=== PATIENT | male | born 2000 | race Caucasian/White ===

== ENCOUNTER 2021-06-07 11:09 | Day surgery (SDC) | payer OTHER ==
[~2021-06-07] VITALS: Ht 180.3 cm; Wt 80.9 kg
[~2021-06-07 11:09] MED LIST: MIRA3350 PO; NS 1,000 ML IV ONE; magnesium citrate PO
[2021-06-07] MEDS ORDERED: propofoL 200 MG/20 ML VIAL As Ordered ONE (12:54)
[2021-06-07] MEDS ORDERED: propofoL 500 MG/50 ML VIAL As Ordered ONE (13:42)
--- NOTE | 2021-06-07 14:17 | ROOR ---
Patient Name: Richard Grover Procedure Date: 06/07/2021 1:34 PM Date of : 2000 Age: 20 Room: [facility] Gender: Male Note Status: Finalized Procedure: Colonoscopy Indications: Hematochezia, Constipation Providers: Abiodun Cisneros MD Referring MD: TWIN MURCIA MD Requesting Provider: Medicines: Monitored Anesthesia Care Complications: No immediate complications. Procedure: Pre-Anesthesia Assessment: - The heart rate, respiratory rate, oxygen saturations, blood pressure, adequacy of pulmonary ventilation, and response to care were monitored throughout the procedure. The Colonoscope was introduced through the anus and advanced to 10 cm into the ileum. The colonoscopy was performed without difficulty. The patient tolerated the procedure well. The quality of the bowel preparation was good. Findings: The perianal and digital rectal examinations were normal. Two semi-pedunculated polyps were found in the sigmoid colon and hepatic flexure. The polyps were 7 mm in size. These polyps were removed with a cold snare. Resection and retrieval were complete. To prevent bleeding after the polypectomy, three hemostatic clips were successfully placed. There was no bleeding at the end of the procedure. Small Internal Hemorrhoids. The exam was otherwise normal throughout the examined colon. The terminal ileum appeared normal. Impression: - Two 7 mm polyps in the sigmoid colon and at the hepatic flexure, removed with a cold snare. Resected and retrieved. Clips were placed. - Small Internal Hemorrhoids. - The colon and examined portion of the ileum was otherwise normal. Recommendation: - Telephone endoscopist for pathology results in 2 weeks. - Use fiber, for example Citrucel, Fibercon, Konsyl or Metamucil. - Miralax 1 capful (17 grams) in 8 ounces of water PO BID. Procedure Code(s): --- Professional --- 14890, Colonoscopy, flexible; with removal of tumor(s), polyp(s), or other lesion(s) by snare technique Diagnosis Code(s): --- Professional --- K59.00, Constipation, unspecified K92.1, Melena (includes Hematochezia) K63.5, Polyp of colon CPT copyright 2019 [employer]. All rights reserved. The codes documented in this report are preliminary and upon hvac service tech review may be revised to meet current compliance requirements. Abiodun Cisneros MD Abiodun Cisneros MD 06/07/2021 2:16:53 PM Electronically signed by Abiodun Cisneros MD Number of Addenda: 0 Note Initiated On: 06/07/2021 1:34 PM Estimated Blood Loss: Estimated blood loss: none.
[2021-06-07 14:40] VITALS: BP 120/70
== END 2021-06-07 14:51 | disposition home or self-care (01) ==
LOC: M OPP 11:09
PROVIDERS: ATTEND Internal Medicine Gastroenterology
DX: K63.5 Polyp of colon (principal); K92.1 Melena; K59.00 Constipation, unspecified; F17.210 Nicotine dependence, cigarettes, uncomplicated

== ENCOUNTER 2023-03-05 11:17 | Day surgery (SDC) | payer OTHER ==
[~2023-03-05] VITALS: Ht 180.3 cm; Wt 86.4 kg
[~2023-03-05 11:17] MED LIST changes: +FLUT50SP17; +MELA5TAB20 PO; -NS 1,000 ML IV ONE
[2023-03-05] MEDS ORDERED: SUGAMMADEX SODIUM 500 MG/5 ML VIAL (BRIDION) As Ordered ONE (13:22)
[2023-03-05] MEDS ORDERED: propofoL 200 MG/20 ML VIAL As Ordered ONE (13:22)
[2023-03-05] MEDS ORDERED: LIDOCAINE 2% 100MG/5ML SDV (FOR ANES.) As Ordered ONE (13:22)
[2023-03-05] MEDS ORDERED: ONDANSETRON 4MG 2ML VIAL As Ordered ONE (13:22)
[2023-03-05] MEDS ORDERED: ROCURONIUM BROMIDE 50MG/5ML VIAL As Ordered ONE (13:22)
[2023-03-05] MEDS ORDERED: fentaNYL 100 MCG/2 ML INJECTION As Ordered ONE ×2 (13:29→15:04)
[2023-03-05] MEDS ORDERED: MIDAZOLAM INJ 2MG/2ML VIAL As Ordered ONE (13:29)
[2023-03-05] MEDS ORDERED: OXYMETAZOLINE 0.05% NASAL SPRAY (AFRIN) As Ordered ONE (14:07)
[2023-03-05] MEDS ORDERED: COCAINE 4% 4ML NASAL SOLUTION BTL As Ordered ONE (14:07)
[2023-03-05] MEDS ORDERED: LIDOCAINE W/EPINEPHRINE 1% 20ML VIAL As Ordered ONE (14:07)
[2023-03-05] MEDS ORDERED: ACETAMINOPHEN 1000MG 100ML IV BAG As Ordered ONE (14:40)
[2023-03-05] MEDS ORDERED: oxyCODONE 5MG TAB PO PRN (15:25)
[2023-03-05] MEDS ORDERED: ONDANSETRON 4MG 2ML VIAL IV PRN ×2 (15:25→16:15)
[2023-03-05] MEDS ORDERED: fentaNYL 100 MCG/2 ML INJECTION IV PRN (15:25)
[2023-03-05] MEDS ORDERED: HYDROMORPHONE HCL 0.5 MG/ 0.5 ML SYRINGE IV PRN (15:25)
[2023-03-05] MEDS ORDERED: LR 1,000 ML IV SCH (16:15)
[2023-03-05] MEDS ORDERED: ANEXSIA, NORCO 7.5MG/325MG TABLET(HYDROCODONE/APAP) PO PRN (16:15)
[2023-03-05 16:39] VITALS: BP 159/86
== END 2023-03-05 16:55 | disposition home or self-care (01) ==
LOC: M SDC 11:17
PROVIDERS: ATTEND Otolaryngology
DX: J34.2 Deviated nasal septum (principal); J34.3 Hypertrophy of nasal turbinates; Z87.19 Personal history of other diseases of the digestive system; R06.83 Snoring; F17.290 Nicotine dependence, other tobacco product, uncomplicated
CPT/HCPCS: 30140; 30520; C9143; J0131; J1100; J2250; J2405; J3010